=== PATIENT | male | born 1950 | race African-American/Black ===

== ENCOUNTER 2023-07-05 13:23 | Emergency (ER) | payer MEDICARE, MEDICAID ==
[~2023-07-05] VITALS: Ht 188 cm; Wt 91.0 kg
[2023-07-05 13:28] VITALS: TEMP 98.4; O2SAT 98
[2023-07-05] MEDS ORDERED: GABA-532 MT (14:02)
[2023-07-05] MEDS: GABAPENTIN 300MG CAPSULE PO ONE (14:58)
[2023-07-05 20:09] VITALS: BP 158/76; PULSE 78; RESP 18
== END 2023-07-05 20:49 | disposition home or self-care (01) ==
LOC: ER 13:23
DX: G62.89 Other specified polyneuropathies (principal); M79.18 Myalgia, other site; E11.9 Type 2 diabetes mellitus without complications; I10 Essential (primary) hypertension
CPT/HCPCS: 99283

== ENCOUNTER 2024-11-11 23:55 | Emergency (ER) | payer MEDICARE, MEDICAID ==
[~2024-11-11] VITALS: Ht 182.9 cm; Wt 91.0 kg
[~2024-11-11 23:55] MED LIST: GABA-1180 MT
[2024-11-11 23:56] VITALS: TEMP 37.1; O2SAT 96
[2024-11-12 01:04] VITALS: PULSE 84
[2024-11-12] MEDS: IBUPROFEN 600MG TABLET PO ONE (01:04)
[2024-11-12 01:05] VITALS: BP 148/76; RESP 16
[2024-11-12] MEDS: LIDOCAINE 5% PATCH TOP SCH (01:05)
[2024-11-12] MEDS ORDERED: NAPR-1176 MT (02:06)
[2024-11-12] MEDS ORDERED: LIDO-53 TP (02:06)
[2024-11-12 02:38] VITALS: TEMP 98.8
[2024-11-12] MEDS: ACETAMINOPHEN 500MG TABLET PO ONE (02:38)
== END 2024-11-12 03:31 | disposition home or self-care (01) ==
LOC: ER 23:55
DX: M25.561 Pain in right knee (principal); M25.562 Pain in left knee; E11.9 Type 2 diabetes mellitus without complications; I10 Essential (primary) hypertension; Z79.1 Long term (current) use of non-steroidal anti-inflammatories (NSAID); Z79.899 Other long term (current) drug therapy
CPT/HCPCS: 73562; 99284; A4606

== ENCOUNTER 2025-01-23 20:56 | Emergency (ER) | payer MEDICARE, MEDICAID ==
[~2025-01-23] VITALS: Ht 182.9 cm; Wt 77.0 kg
[~2025-01-23 20:56] MED LIST changes: +LIDO-53 TP; +NAPR-1176 MT
[2025-01-23 21:06] VITALS: O2SAT 99
[2025-01-23] MEDS: IBUPROFEN 600MG TABLET PO ONE (21:59)
[2025-01-23] MEDS: ACETAMINOPHEN 325MG TABLET PO ONE (22:00)
[2025-01-23 22:28] LABS: BASOPHILS % 0.3 % (0.0-2.0); EOSINOPHILS % 0.2 % (0.0-5.0); HEMATOCRIT. 34.0 % (42.0-52.0); HEMOGLOBIN. 11.1 g/dL (14.0-18.0); LYMPHOCYTES % 15.5 % (20.0-50.0); MEAN PLATELET VOLUME 7.7 fl (7.4-10.4); MONOCYTES % 7.5 % (2.0-8.0); NEUTROPHILS % 76.5 % (40.0-76.0); PLATELET 194 x1000/uL (130-400); RED BLOOD CELL COUNT 3.86 mill/uL (4.7-6.1); RED CELL DISTRIBUTION WIDTH 14.3 % (11.6-14.6)
[2025-01-23 22:30] LABS: CLARITY URINE CLEAR (CLEAR); COLOR URINE YELLOW (YELLOW); GLUCOSE URINE NEGATIVE (NEGATIVE); KETONES URINE NEGATIVE (NEGATIVE); LEUKOCYTE ESTERASE URINE NEGATIVE (NEGATIVE); NITRITE URINE NEGATIVE (NEGATIVE); OCCULT BLOOD URINE NEGATIVE (NEGATIVE); PH URINE 5.5 (4.5-8.0); PROTEIN URINE 3+ (NEGATIVE); SPECIFIC GRAVITY URINE 1.011 (1.005-1.030); UROBILINOGEN URINE 0.2 E.U./dL (0.2-1.0)
[2025-01-23 22:36] LABS: CREATININE 1.3 mg/dL (0.6-1.3); UREA NITROGEN BLOOD 22 mg/dL (9-23)
[2025-01-23 22:40] LABS: BACTERIA URINE NONE SEEN; RBC URINE 0-2 /hpf (0-2); SQUAMOUS EPITHELIAL CELL URINE RARE /lpf (RARE/1+); WBC URINE 0-2 /hpf (0-2)
[2025-01-23] MEDS ORDERED: NAPR220C61 MT (22:46)
[2025-01-23 23:05] VITALS: BP 165/82; PULSE 77; RESP 17; TEMP 36.8; O2SAT 99
[2025-01-23] MEDS: CYCLOBENZAPRINE 10MG TABLET PO SCH (23:08)
== END 2025-01-24 01:15 | disposition home or self-care (01) ==
LOC: ER 20:56
DX: M79.605 Pain in left leg (principal); I10 Essential (primary) hypertension; E11.9 Type 2 diabetes mellitus without complications; Z95.5 Presence of coronary angioplasty implant and graft; Z79.1 Long term (current) use of non-steroidal anti-inflammatories (NSAID)
CPT/HCPCS: 36415; 80048; 81003; 82550; 85025; 93971; 99284